=== PATIENT | female | born 1955 | race Caucasian/White ===

== ENCOUNTER 2019-07-09 15:40 | Emergency (ER) | payer OTHER, MEDICAID ==
[~2019-07-09] VITALS: Ht 154.9 cm; Wt 64.5 kg
[~2019-07-09 15:40] MED LIST: GLU500 PO; NEU100 PO; RANITIDINE150 MG PO; SUMATRIPTAN SUC25 MG PO
[2019-07-09 15:51] VITALS: BP 121/79; Ht 154.9 cm; Wt 64.5 kg
[2019-07-09 17:58] LABS: BASOPHIL % 0.3 % (0-2); RED CELL DISTRIBUTION WIDTH 13.7 % (11.5-14.5)
[2019-07-09 17:59] LABS: PLATELET COUNT 121 x10^3mcL (130-400)
[2019-07-09 18:09] LABS: CARBON DIOXIDE 24.6 mmol/L (21-32); CHLORIDE SERUM 103 mmol/L (98-107); CREATININE SERUM 0.7 mg/dL (0.6-1.0); GFR1 > 60 mL/min; GLUCOSE SERUM 349 mg/dL (74-106); POTASSIUM SERUM 4.4 mmol/L (3.5-5.1); SODIUM SERUM 137 mmol/L (136-145)
[2019-07-09 18:14] LABS: ALBUMIN 3.1 g/dL (3.4-5.0); ALKALINE PHOSPHATASE 123 U/L (46-116); ALT/SGPT 21 U/L (14-59); AST/SGOT 18 U/L (15-37); TOTAL PROTEIN, SERUM 8.3 g/dL (6.4-8.2)
== END 2019-07-09 19:02 | disposition home or self-care (01) ==
LOC: ED 15:40
PROVIDERS: Emergency Medicine
DX: B19.20 Unspecified viral hepatitis C without hepatic coma (principal); E11.9 Type 2 diabetes mellitus without complications; Z88.6 Allergy status to analgesic agent; Z88.5 Allergy status to narcotic agent
CPT/HCPCS: 36415